=== PATIENT | female | born 1990 | race Caucasian/White ===

== ENCOUNTER 2019-02-13 17:24 | Outpatient (CLI) | payer OTHER ==
[~2019-02-13] VITALS: Ht 170.2 cm; Wt 85.3 kg
--- NOTE | 2019-02-13 17:50 | NUR ---
DEREJE SIDDIQUI presented to unit via AMBULATION from ED, accompanied by FAMILY, with c/o VOMITING. DEREJE SIDDIQUI weighed, gowned, voided, and to bed. VS taken. DEREJE SIDDIQUI oriented to bed controls, call light, TV, heat, and A/C controls.
--- NOTE | 2019-02-13 18:00 | NUR ---
PT IN BR, EMESIS NOTED, PT REPORTS NAUSEA/VOMITING/DIARRHEA SINCE SATURDAY. PT DENIES LEAKING FLUID, VAGINAL BLEEDING OR CONTRACTIONS BUT DOES REPORTS SOME LOWER ABDOMINAL CRAMPING TODAY. INITIAL ASSESSMENT COMPLETED, SEE INTERVENTIONS FOR DETAILED ASSESSMENTS, PLAN OF CARE UPDATED WITH PT/SO AND FAMILY. WILL MONITOR CLOSELY. DR STANTON NOTIFIED, NEW ORDERS RECEIVED.
--- NOTE | 2019-02-13 18:10 | NUR ---
IV STARTED X 1 STICK TO PT LT HAND, LR INFUSING AT 500ML/HR PER PUMP. LABS DRAWN SENT TO LAB. PT TOLERATED WELL.
--- NOTE | 2019-02-13 18:15 | NUR ---
FHT'S DOPPLERED AT 152.
[2019-02-13] MEDS ORDERED: LACTATED RINGERS 1,000 ML IV SCH (18:30)
[2019-02-13] MEDS ORDERED: PROMETHAZINE INJ 25 MG/ML (PHENERGAN) AMP IVP PRN (18:30)
--- NOTE | 2019-02-13 18:36 | NUR ---
PHENERGAN 25MG GIVEN SIVP FOR NAUSEA.
[2019-02-13 18:43] VITALS: BP 113/60
[2019-02-13 18:44] LABS: BASOPHILS % (AUTO) 0 % (0-10); EOSINOPHILS # (AUTO) 0.1 10^3/uL (0.0-0.3); EOSINOPHILS % (AUTO) 1 % (0-10); HEMATOCRIT 40 % (35-52); LYMPHOCYTES # (AUTO) 1.5 X 10^3 (1.0-4.0); LYMPHOCYTES % (AUTO) 13 % (12-44); MEAN CORPUSCULAR HEMOGLOBIN 29 PG (25-34); MEAN CORPUSCULAR HGB CONC 35 G/DL (32-36); MEAN CORPUSCULAR VOLUME 85 FL (80-99); MEAN PLATELET VOLUME 10.2 FL (7.4-10.4); MONOCYTES # (AUTO) 1.4 X 10^3 (0.0-1.0); MONOCYTES % (AUTO) 12 % (0-12); NEUTROPHILS # (AUTO) 8.6 X 10^3 (1.8-7.8); NEUTROPHILS % (AUTO) 74 % (42-75); PLATELET COUNT 227 10^3/uL (130-400); RED CELL DISTRIBUTION WIDTH 14.3 % (10.0-14.5); WHITE BLOOD COUNT 11.6 10^3/uL (4.3-11.0)
[2019-02-13 18:53] LABS: ALANINE AMINOTRANSFERASE 42 U/L (0-55); ALKALINE PHOSPHATASE 73 U/L (40-136); BILIRUBIN,TOTAL 0.7 MG/DL (0.1-1.0); BUN/CREATININE RATIO 10; CARBON DIOXIDE 20 MMOL/L (21-32); CREATININE SERUM 0.63 MG/DL (0.60-1.30); GFR ESTIMATED > 60; GLUCOSE 91 MG/DL (70-105); TOTAL PROTEIN 7.2 GM/DL (6.4-8.2)
[2019-02-13] MEDS ORDERED: FLU QUADRIvalent (5+ YOA) 2018-2019 (AFLURIA) 0.5 ML IM ONE (19:00)
[2019-02-13 19:05] LABS: CHLORIDE 105 MMOL/L (98-107); POTASSIUM 3.9 MMOL/L (3.6-5.0); SODIUM 133 MMOL/L (135-145)
--- NOTE | 2019-02-13 20:11 | NUR ---
Dr. Harris called with lab results. Informed that pt states that she is feeling much better at this time. Dr. Harris states that she can start with some clear liquids and then some light solid food. If she can keep that down and wants to go home, she can be dismissed. orders 25mg Promethazine, PO q4h PRN to be called into pt's pharmacy when dismissed.
--- NOTE | 2019-02-13 20:15 | NUR ---
Pt. updated with plan of care. Pt. requests some jello at this time, and states that Dr. Harris prescribed her Promethazine yesterday that she picked up and has at home if needed.
--- NOTE | 2019-02-13 21:05 | NUR ---
Pt. has now eaten some jello and crackers and states that she still is feeling good, and would like to go home at this time.
--- NOTE | 2019-02-13 21:25 | NUR ---
Pt. vitals taken. IV removed. Discharge instructions reviewed and signed at this time. Pt. is now up and changing.
--- NOTE | 2019-02-13 21:25 | NUR ---
FHT's Doppler reviewed. Infant heart rate ranged from 158-164.
[2019-02-13 21:30] VITALS: BP 106/63
--- NOTE | 2019-02-13 21:40 | NUR ---
Pt. walked down alone after SO pulled up car. Pt shows no signs or symptoms of distress.
== END 2019-02-13 21:40 | disposition home or self-care (01) ==
LOC: WSo 17:24 → LDRP 17:43 → WSo 21:40
PROVIDERS: ATTEND Obstetrics & Gynecology
DX: O21.2 Late vomiting of pregnancy (principal); Z3A.21 21 weeks gestation of pregnancy
CPT/HCPCS: 36415; 80053; 85025; 96361; 96374; 99213

== ENCOUNTER → 2019-02-18 | Outpatient (CLI) | payer OTHER ==
--- NOTE | 2019-02-18 14:58 | Diagnostic Imaging Report ---
INDICATION: survey. TECHNIQUE: Multiple real-time grayscale images were obtained over the gravid uterus. COMPARISON: None. FINDINGS: There is a single live fetus in a cephalic presentation. heart rate was recorded at 133 beats per minute. Placenta is fundal. Amniotic fluid volume is normal. Cervical length is approximately 4.3 cm. Cervical length determination is limited due to inadequate bladder filling. The survey shows kidneys, bladder and stomach to be unremarkable. There is a four-chamber heart. There is a three-vessel cord with normal insertion. The spine is unremarkable. brain evaluation is limited due to position. Biometrical measurements are as follows: Biparietal 5.38 cm, age 22 weeks 3 days. Head circumference 19.86 cm, age 22 weeks 1 days. Abdominal circumference 18.11 cm, age 23 weeks 0 days. Femur length 3.86 cm, age 22 weeks 3 days. Sonographic estimate age: 22 weeks 4 days. Sonographic estimated date of delivery: 06/20/2019. Estimated Weight: 520 gm (+/- 76 gm). LMP percentile: 61%. heart rate: 133 beats per minute. number: 1 of 1. IMPRESSION: Single live IUP 22 weeks 4 days gestational age. Estimated date of confinement sonographically is 06/20/2019. brain is limited in evaluation due to position. Followup could be performed. Dictated by: Dictated on workstation # [id number]
== END ==
LOC: RAD 13:00
PROVIDERS: ATTEND Obstetrics & Gynecology
DX: Z36.89 Encounter for other specified antenatal screening (principal); Z3A.22 22 weeks gestation of pregnancy
CPT/HCPCS: 76805

== ENCOUNTER → 2019-04-13 | Outpatient (CLI) | payer OTHER | LOC: LAB 10:57 | PROVIDERS: ATTEND Obstetrics & Gynecology | DX: R73.02 Impaired glucose tolerance (oral) (principal) | CPT/HCPCS: 36415; 82951; 82952; 82962 ==

== ENCOUNTER → 2019-05-11 | Outpatient (CLI) | payer OTHER ==
--- NOTE | 2019-05-11 23:25 | Diagnostic Imaging Report ---
INDICATION: survey. TECHNIQUE: Multiple real-time grayscale images were obtained over the gravid uterus. COMPARISON: 02/18/2019 FINDINGS: The previous OB ultrasound exam of 02/18/2019 noted a single live fetus approximately 22 weeks 4 days gestation. There were no [place] abnormalities identified but the brain was not well imaged. On this exam, the fetus is now in cephalic presentation. heart motion was noted and a rate of 133 bpm was recorded. The head is low in the pelvis and the intracranial contents are difficult to visualize. There is no obvious intracranial abnormality. No other abnormalities noted. The placenta is fundal and there is no previa. The amniotic fluid volume is within normal limits. growth parameters were not obtained for this study. IMPRESSION: 1. There is a single live fetus in cephalic presentation. The EDC remains 05/23/2019. 2. The intracranial contents were not well visualized due to the lie. There is no obvious intracranial abnormality evident. e Biometrical measurements are as follows: Biparietal cm, age weeks days. Head circumference cm, age weeks days. Abdominal circumference cm, age weeks days. Femur length cm, age weeks days. Sonographic estimate age: weeks days. Sonographic estimated date of delivery: . Estimated Weight: gm (+/- gm). LMP percentile: %. heart rate: beats per minute. number: of . IMPRESSION: Dictated by: Dictated on workstation # [id number]
== END ==
LOC: RAD 15:10
PROVIDERS: ATTEND Obstetrics & Gynecology
DX: Z36.89 Encounter for other specified antenatal screening (principal); Z3A.33 33 weeks gestation of pregnancy
CPT/HCPCS: 76805

== ENCOUNTER 2019-06-19 10:30 | Inpatient (IN) | payer OTHER ==
[2019-06-19] VITALS (49 sets, daily range): BP systolic 55–142; BP diastolic 53–91
[~2019-06-19] VITALS: Ht 170.2 cm; Wt 107.0 kg
--- NOTE | 2019-06-19 10:30 | NUR ---
DEREJE SIDDIQUI presented to unit via ambulatory from home, accompanied by boyfriend , with c/o INDUCTION. DEREJE SIDDIQUI weighed, gowned, voided, and to bed. EFHM and TOCO applied, VS taken. DEREJE SIDDIQUI oriented to bed controls, call light, TV, heat, and A/C controls. Pt was a scheduled 0700 induction, however had to be delayed due to other labors.
[2019-06-19] MEDS ORDERED: D5 LR IV SOLUTION 1,000 ML IV ONE (10:57)
[2019-06-19] MEDS ORDERED: D5 LR IV SOLUTION 1,000 ML IV SCH (12:53)
[2019-06-19] MEDS ORDERED: MINERAL OIL CONCENTRATE 99.9% 15 ML UDC TOP PRN (13:00)
[2019-06-19 13:13] LABS: BASOPHILS % (AUTO) 0 % (0-10); EOSINOPHILS # (AUTO) 0.2 10^3/uL (0.0-0.3); EOSINOPHILS % (AUTO) 1 % (0-10); HEMATOCRIT 38 % (35-52); HEMOGLOBIN 12.5 G/DL (11.5-16.0); LYMPHOCYTES # (AUTO) 3.1 X 10^3 (1.0-4.0); LYMPHOCYTES % (AUTO) 25 % (12-44); MEAN CORPUSCULAR HEMOGLOBIN 28 PG (25-34); MEAN CORPUSCULAR HGB CONC 33 G/DL (32-36); MEAN CORPUSCULAR VOLUME 85 FL (80-99); MEAN PLATELET VOLUME 11.6 FL (7.4-10.4); MONOCYTES % (AUTO) 8 % (0-12); NEUTROPHILS % (AUTO) 65 % (42-75); PLATELET COUNT 222 10^3/uL (130-400); RED CELL DISTRIBUTION WIDTH 15.5 % (10.0-14.5); WHITE BLOOD COUNT 12.3 10^3/uL (4.3-11.0)
[2019-06-19] MEDS ORDERED: SUFENTA 0.6MCG/ML BUPIVA 0.125 100 ML ONE (13:28)
[2019-06-19] MEDS ORDERED: fentaNYL INJECTION 100 MCG/2 ML AMP ONE (13:46)
[2019-06-19] MEDS ORDERED: CATHETER FLUSH 10 ML SYR IV SCH (14:00)
[2019-06-19] MEDS ORDERED: LACTATED RINGERS 1,000 ML IV ONE (14:27)
[2019-06-19] MEDS ORDERED: diphenhydrAMINE 50 MG/ML INJ (BENADRYL) IV PRN (14:30)
[2019-06-19] MEDS ORDERED: NALOXONE 0.4 MG/ML 1 ML (NARCAN) VIAL IV PRN ×2 (14:30)
[2019-06-19] MEDS ORDERED: ONDANSETRON 4 MG/2 ML (SDV) Z0FRAN IV PRN (14:30)
[2019-06-19] MEDS ORDERED: METOCLOPRAMIDE INJ 10 MG/2 ML (REGLAN) IV PRN (14:30)
[2019-06-19] MEDS ORDERED: EPIDURAL (SUFENTA 0.6MCG/ML BUPIVA 0.125%) 100 ML BAG EPI PRN (14:30)
[2019-06-19] MEDS ORDERED: OXYTOCIN/NORMAL SALINE 500 ML IV ONE (14:42)
[2019-06-19] MEDS ORDERED: PREN1TAB19 PO (16:05)
[2019-06-19] MEDS ORDERED: MAG30ORA2 PO (16:05)
[2019-06-19] MEDS ORDERED: ACET325C5 PO (16:06)
[2019-06-19] MEDS ORDERED: LIDOCAINE/EPI 2% 1:200,00 (XYLOCAINE) 10 ML VIAL ONE (16:53)
[2019-06-19] MEDS ORDERED: OXYTOCIN/NORMAL SALINE 500 ML IV SCH ×2 (17:59→23:17)
--- OUTSIDE RECORDS SUMMARY | 2019-06-19 19:33 | XMS REPORT | Continuity of Care Document ---
Author Organization Unknown Address Unknown Allergies Active Description Code Type Severity Reaction Onset Reported/Identified Relationship to Patient Clinical Status Yes No Known Drug Allergies [id number] Drug Allergy Unknown N/A 02/13/2019 Medications There is no data. Problems Date Dx Coded Attending Type Code Diagnosis Diagnosed By 02/13/2019 STANTON DO, JOAQUIN C Ot O21.2 LATE VOMITING OF 02/13/2019 STANTON DO, JOAQUIN C Ot Z3A.21 21 WEEKS GESTATION OF 02/16/2019 STANTON DO, JOAQUIN C Ot O21.2 LATE VOMITING OF 02/16/2019 STANTON DO, JOAQUIN C Ot Z3A.21 21 WEEKS GESTATION OF 02/20/2019 STANTON DO JOAQUIN C Ot Z36.89 ENCOUNTER FOR OTHER SPECIFIED 02/20/2019 STANTON DO, JOAQUIN C Ot Z3A.22 22 WEEKS GESTATION OF 03/16/2019 STANTON DO, JOAQUIN C Ot Z36.89 ENCOUNTER FOR OTHER SPECIFIED 03/16/2019 STANTON DO, JOAQUIN C Ot Z3A.22 22 WEEKS GESTATION OF 04/20/2019 STANTON DO, JOAQUIN C Ot R73.02 IMPAIRED GLUCOSE TOLERANCE (ORAL) 05/07/2019 STANTON DO, JOAQUIN C Ot R73.02 IMPAIRED GLUCOSE TOLERANCE (ORAL) 06/08/2019 STANTON DO JOAQUIN C Ot Z36.89 ENCOUNTER FOR OTHER SPECIFIED 06/08/2019 STANTON DO, JOAQUIN C Ot Z3A.33 33 WEEKS GESTATION OF 06/19/2019 STANTON DO, JOAQUIN C Ot Z36.89 ENCOUNTER FOR OTHER SPECIFIED 06/19/2019 STANTON DO, JOAQUIN C Ot Z3A.22 22 WEEKS GESTATION OF 06/19/2019 STANTON DO, JOAQUIN C Ot R73.02 IMPAIRED GLUCOSE TOLERANCE (ORAL) 06/19/2019 STANTON DO JOAQUIN C Ot Z36.89 ENCOUNTER FOR OTHER SPECIFIED 06/19/2019 STANTON DO, JOAQUIN C Ot Z3A.33 33 WEEKS GESTATION OF Procedures There is no data. Results Test Result Range Complete blood count (CBC) with automated white blood cell (WBC) differential - 02/13/19 18:16 Blood leukocytes automated count (number/volume) 11.6 10*3/uL 4.3-11.0 Blood erythrocytes automated count (number/volume) 4.76 10*6/uL 4.35-5.85 Venous blood hemoglobin measurement (mass/volume) 14.0 g/dL 11.5-16.0 Blood hematocrit (volume fraction) 40 % 35-52 Automated erythrocyte mean corpuscular volume 85 [foz_us] 80-99 Automated erythrocyte mean corpuscular hemoglobin (mass per erythrocyte) 29 pg 25-34 Automated erythrocyte mean corpuscular hemoglobin concentration measurement (mass/volume) 35 g/dL 32-36 Automated erythrocyte distribution width ratio 14.3 % 10.0- 14.5 Automated blood platelet count (count/volume) 227 10*3/uL 130-400 Automated blood platelet mean volume measurement 10.2 [foz_us] 7.4-10.4 Automated blood neutrophils/100 leukocytes 74 % 42-75 Automated blood lymphocytes/100 leukocytes 13 % 12-44 Blood monocytes/100 leukocytes 12 % 0-12 Automated blood eosinophils/100 leukocytes 1 % 0-10 Automated blood basophils/100 leukocytes 0 % 0-10 Blood neutrophils automated count (number/volume) 8.6 10*3 1.8-7.8 Blood lymphocytes automated count (number/volume) 1.5 10*3 1.0-4.0 Blood monocytes automated count (number/volume) 1.4 10*3 0.0- 1.0 Automated eosinophil count 0.1 10*3/uL 0.0-0.3 Automated blood basophil count (count/volume) 0.0 10*3/uL 0.0-0.1 Comprehensive metabolic panel - 02/13/19 18:16 Serum or plasma sodium measurement (moles/volume) 133 mmol/L 135-145 Serum or plasma potassium measurement (moles/volume) 3.9 mmol/L 3.6-5.0 Serum or plasma chloride measurement (moles/volume) 105 mmol/L 98-107 Carbon dioxide 20 mmol/L 21-32 Serum or plasma anion gap determination (moles/volume) 8 mmol/L 5-14 Serum or plasma urea nitrogen measurement (mass/volume) 6 mg/dL 7-18 Serum or plasma creatinine measurement (mass/volume) 0.63 mg/dL 0.60-1.30 Serum or plasma urea nitrogen/creatinine mass ratio 10 NRG Serum or plasma creatinine measurement with calculation of estimated glomerular filtration rate > NRG Serum or plasma glucose measurement (mass/volume) 91 mg/dL 70-105 Serum or plasma calcium measurement (mass/volume) 9.0 mg/dL 8.5-10.1 Serum or plasma total bilirubin measurement (mass/volume) 0.7 mg/dL 0.1-1.0 Serum or plasma alkaline phosphatase measurement (enzymatic activity/volume) 73 U/L 40-136 Serum or plasma aspartate aminotransferase measurement (enzymatic activity/volume) 45 U/L 5-34 Serum or plasma alanine aminotransferase measurement (enzymatic activity/volume) 42 U/L 0-55 Serum or plasma protein measurement (mass/volume) 7.2 g/dL 6.4-8.2 Serum or plasma albumin measurement (mass/volume) 4.0 g/dL 3.2-4.5 CALCIUM CORRECTED 9.0 mg/dL 8.5-10.1 Capillary blood glucose measurement by glucometer (mass/volume) - 04/13/19 11:07 Capillary blood glucose measurement by glucometer (mass/volume) 94 mg/dL 70-110 Complete blood count (CBC) with automated white blood cell (WBC) differential - 06/19/19 11:40 Blood leukocytes automated count (number/volume) 12.3 10*3/uL 4.3-11.0 Blood erythrocytes automated count (number/volume) 4.40 10*6/uL 4.35-5.85 Venous blood hemoglobin measurement (mass/volume) 12.5 g/dL 11.5-16.0 Blood hematocrit (volume fraction) 38 % 35-52 Automated erythrocyte mean corpuscular volume 85 [foz_us] 80-99 Automated erythrocyte mean corpuscular hemoglobin (mass per erythrocyte) 28 pg 25-34 Automated erythrocyte mean corpuscular hemoglobin concentration measurement (mass/volume) 33 g/dL 32-36 Automated erythrocyte distribution width ratio 15.5 % 10.0- 14.5 Automated blood platelet count (count/volume) 222 10*3/uL 130-400 Automated blood platelet mean volume measurement 11.6 [foz_us] 7.4-10.4 Automated blood neutrophils/100 leukocytes 65 % 42-75 Automated blood lymphocytes/100 leukocytes 25 % 12-44 Blood monocytes/100 leukocytes 8 % 0-12 Automated blood eosinophils/100 leukocytes 1 % 0-10 Automated blood basophils/100 leukocytes 0 % 0-10 Blood neutrophils automated count (number/volume) 8.0 10*3 1.8-7.8 Blood lymphocytes automated count (number/volume) 3.1 10*3 1.0-4.0 Blood monocytes automated count (number/volume) 1.0 10*3 0.0- 1.0 Automated eosinophil count 0.2 10*3/uL 0.0-0.3 Automated blood basophil count (count/volume) 0.0 10*3/uL 0.0-0.1 Blood type T Indirect antibody screen panel - 06/19/19 11:40 WRISTBAND NUMBER [id number] NRG ABO+Rh group OP NRG Blood group antibody screen NEGATIVE NRG Encounters ACCT No. Visit Date/Time Discharge Status Pt. Type Provider Facility Loc./Unit Complaint [id number] 05/11/2019 15:10:00 05/11/2019 23:59:59 CLS Outpatient JOAQUIN STANTON DO [facility] RAD 32 WEEKS GESTATION OF [id number] 04/13/2019 10:57:00 04/13/2019 23:59:59 CLS Outpatient JOAQUIN STANTON DO [facility] LAB R73.02 [id number] 02/18/2019 13:00:00 02/18/2019 23:59:59 CLS Outpatient JOAQUIN STANTON DO [facility] RAD SECOND TRIMESTER [id number] 02/13/2019 17:24:00 02/13/2019 21:40:00 DIS Outpatient JOAQUIN STANTON DO [facility] WSo VOMITING [id number] 06/19/2019 10:30:00 ACT Inpatient JOAQUIN STANTON DO [facility] LDRP INDUCTION
--- NOTE | 2019-06-19 23:23 | OB Labor & Delivery Record ---
Vag Delivery Note Vag Delivery Note Date of Delivery: 06/19/19 Preoperative Diagnosis: Essie Stearns is a 28 /Para 2/0 ,Gestational Age 39 3/7 weeks for induction of labor with favorable cervix/advanced dilation Postoperative Diagnosis: Same Surgeon: JOAQUIN STANTON Anesthesia: epidural and local Delivery Type: vaginal Findings: Viable male , apgars pending, weight pending Lacerations: 2nd Intact placenta with 3 vessel cord. No nuchal cord, body cord or shoulder dystocia Estimated Blood Loss: 500 ml Complications: None Condition: Stable Description of Procedure: The patient is a 28 year old female who presented at 39 3/7 weeks for induction of labor. She was admitted and informed consent was obtained. Her labor course was remarkable for AROM, epidural and pitocin augmentation. She progressed to complete dilatation and began to push. She was then set up for delivery. The 's head was delivered atraumatically in the OA position. The shoulders and remainder of the 's body were then delivered without difficulty. Upon delivery, the head was held below the level of the perineum and the mouth and nares were bulb suctioned. The cord was doubly clamped and cut and the was handed off to the pediatric staff. An intact placenta with 3-vessel cord delivered via Lola and there was found to be minimal bleeding.~ Vigorous fundal massage was performed and the fundus was found to be firm. IV oxytocin was given. Examination of the vagina and perineum revealed a 2nd degree laceration repaired in the usual fashion with 3-0 vicryl suture. Following the repair, sponge, instrument and needle counts were correct. Mom and baby were both in stable condition in the labor suite. Vitals - Labs Vital Signs - I&O Vital Signs Date Time Temp Pulse Resp B/P (MAP) Pulse Ox O2 Delivery O2 Flow Rate FiO2 06/19/19 19:00 87 16 111/69 (83) 99 Room Air 06/19/19 18:45 16 110/75 (87) 100 Room Air 06/19/19 18:30 87 16 110/75 (87) 100 Room Air 06/19/19 18:15 84 16 112/75 (87) 98 Room Air 06/19/19 18:00 97.4 81 16 116/70 (85) 100 Room Air 06/19/19 17:45 84 16 100 Room Air 06/19/19 17:30 96.6 81 16 119/76 (90) 100 Room Air 06/19/19 17:15 77 16 115/68 (84) 100 Room Air 06/19/19 17:00 76 16 117/71 (86) 99 Room Air 06/19/19 16:45 76 16 117/71 (86) 99 Room Air 06/19/19 16:30 81 16 101/57 (72) 98 Room Air 06/19/19 16:15 81 16 101/57 (72) 98 Room Air 06/19/19 16:00 96.8 79 16 102/57 (72) 97 Room Air 06/19/19 15:45 80 16 105/53 (70) 97 Room Air 06/19/19 15:30 101 16 102/66 (78) 97 Room Air 06/19/19 15:15 92 16 105/63 (77) 98 Room Air 06/19/19 15:00 101 16 102/66 (78) 97 Room Air 06/19/19 14:45 97 16 107/66 (80) 97 Room Air 06/19/19 14:35 93 16 105/56 (72) 96 06/19/19 14:30 104 16 111/62 (78) 98 Room Air 06/19/19 14:25 100 16 120/65 (83) 98 Room Air 06/19/19 14:15 104 16 111/62 (78) 98 Room Air 06/19/19 14:12 11 16 126/66 (86) 100 Room Air 06/19/19 14:05 92 16 131/89 (103) 96 Room Air 06/19/19 14:00 84 16 123/85 (98) 97 Room Air 06/19/19 13:55 98.8 87 16 122/78 (93) 98 Room Air 06/19/19 13:48 125/82 (96) Room Air 06/19/19 12:00 Room Air 06/19/19 11:00 98.2 82 16 126/75 (92) Room Air Labs Laboratory Tests 06/19/19 11:40: White Blood Count 12.3H, Red Blood Count 4.40, Hemoglobin 12.5, Hematocrit 38, Mean Corpuscular Volume 85, Mean Corpuscular Hemoglobin 28, Mean Corpuscular Hemoglobin Concent 33, Red Cell Distribution Width 15.5H, Platelet Count 222, Mean Platelet Volume 11.6H, Neutrophils (%) (Auto) 65, Lymphocytes (%) (Auto) 25, Monocytes (%) (Auto) 8, Eosinophils (%) (Auto) 1, Basophils (%) (Auto) 0, Neutrophils # (Auto) 8.0H, Lymphocytes # (Auto) 3.1, Monocytes # (Auto) 1.0, Eosinophils # (Auto) 0.2, Basophils # (Auto) 0.0 JOAQUIN STANTON DO Jun 19, 2019 23:23
[2019-06-19] MEDS ORDERED: MEASLES,MUMPS,RUBELLA 1 EA INJ SQ ONE (23:30)
[2019-06-19] MEDS ORDERED: WITCH HAZEL(TUCKS) 40 EA JAR TOP PRN (23:30)
[2019-06-19] MEDS ORDERED: DIBUCAINE (NUPERCAINAL) 1% OINT 30 GM TOP PRN (23:30)
[2019-06-19] MEDS ORDERED: TETANUS,DIPTH,PERTUSS P/F (BOOSTRIX) 0.5 ML VIAL IM ONE (23:30)
[2019-06-20] VITALS (7 sets, daily range): BP systolic 97–124; BP diastolic 57–83
[2019-06-20] MEDS: BENZOCAINE/MENTHOL (DERMOPLAST) 56 ML CAN TP PRN (00:01)
--- NOTE | 2019-06-20 00:45 | NUR ---
Donovan care done on pt. Heavy rubra noted. Fundal massage given. fudus firm u/0. No clots seen. Pad changed, panties on. Gown changed. Epidural catheter removed. Bandaid applied to epidural site. d5lr dc'd. Pt moving legs and requesting to move. Pt transferred to with assist. Pt transferred per to room 308 accompanied by this rn, so, and infant in crib. Pt up to br. Able to void. donovan care explained. Dermaplast applied. Pericare done with assist. Light to moderate rubra noted. v pad and panties on. Pt walked to bed. food tray and sprite given. Oriented to room Info papers given. Will monitor.
--- NOTE | 2019-06-20 01:30 | NUR ---
Pt denies needs at this time. Denies heavy bleeding/pain. Encouraged pt to feed before she goes to sleep for the night.
--- NOTE | 2019-06-20 03:30 | NUR ---
Pt still has not fed . VS taken, IV saline locked. to R breast. Baby very drowsy. Willard nipple. difficult to latch. Latch achieved after repeated attempts with sweet ease and nipple shield. Mom seems satisfied. Encouraged mom to try again in 2 hours.
[2019-06-20] MEDS: ACETAMINOPHEN 500 MG TAB (TYLENOL) PO SCH ×3 (05:30→22:14)
[2019-06-20] MEDS ORDERED: CATHETER FLUSH 10 ML SYR IV SCH (06:00)
[2019-06-20] MEDS: IBUPROFEN 600 MG (MOTRIN) TAB PO SCH ×5 (06:21→23:54)
[2019-06-20 06:33] LABS: BASOPHILS % (AUTO) 0 % (0-10); EOSINOPHILS % (AUTO) 0 % (0-10); HEMATOCRIT 31 % (35-52); HEMOGLOBIN 10.1 G/DL (11.5-16.0); LYMPHOCYTES # (AUTO) 2.4 X 10^3 (1.0-4.0); LYMPHOCYTES % (AUTO) 12 % (12-44); MEAN CORPUSCULAR HEMOGLOBIN 29 PG (25-34); MEAN CORPUSCULAR HGB CONC 33 G/DL (32-36); MEAN CORPUSCULAR VOLUME 87 FL (80-99); MEAN PLATELET VOLUME 10.8 FL (7.4-10.4); MONOCYTES # (AUTO) 1.6 X 10^3 (0.0-1.0); MONOCYTES % (AUTO) 8 % (0-12); NEUTROPHILS # (AUTO) 15.7 X 10^3 (1.8-7.8); NEUTROPHILS % (AUTO) 80 % (42-75); PLATELET COUNT 179 10^3/uL (130-400); RED CELL DISTRIBUTION WIDTH 15.6 % (10.0-14.5); WHITE BLOOD COUNT 19.8 10^3/uL (4.3-11.0)
[2019-06-20] MEDS: DOCUSATE SODIUM 100 MG (COLACE) CAP PO SCH ×2 (08:46→22:14)
[2019-06-20] MEDS: PRENATAL VITAMIN 1 EA TAB PO SCH (08:46)
[2019-06-20] MEDS: FERROUS SULF 325 MG (IRON) TAB PO SCH (08:46)
--- NOTE | 2019-06-20 08:46 | NUR ---
AM shift assessment completed and vital signs obtained, see interventions. Scheduled Colace, PNV, and Iron PO given to patient. Plan of care reviewed with patient. Patient verbalizes understanding and questions answered. Shower supplies provided.
--- NOTE | 2019-06-20 14:00 | NUR ---
Dr. Harris here to see patient.
--- NOTE | 2019-06-20 14:24 | Postpartum Progress Note ---
Note Note Day # 1 s/p Subjective: Patient is without complaints. Ambulating, voiding. Tolerating a regular diet w ithout nausea or vomiting. Normal lochia. Pain is well controlled with oral pain medications. breast feeding. [] Objective: Laboratory Tests Test 06/20/19 06:25 Range/Units White Blood Count 19.8 H 4.3-11.0 10^3/uL Red Blood Count 3.52 L 4.35-5.85 10^6/uL Hemoglobin 10.1 L 11.5-16.0 G/DL Hematocrit 31 L 35-52 % Mean Corpuscular Volume 87 80-99 FL Mean Corpuscular Hemoglobin 29 25-34 PG Mean Corpuscular Hemoglobin Concent 33 32-36 G/DL Red Cell Distribution Width 15.6 H 10.0-14.5 % Platelet Count 179 130-400 10^3/uL Mean Platelet Volume 10.8 H 7.4-10.4 FL Neutrophils (%) (Auto) 80 H 42-75 % Lymphocytes (%) (Auto) 12 12-44 % Monocytes (%) (Auto) 8 0-12 % Eosinophils (%) (Auto) 0 0-10 % Basophils (%) (Auto) 0 0-10 % Neutrophils # (Auto) 15.7 H 1.8-7.8 X 10^3 Lymphocytes # (Auto) 2.4 1.0-4.0 X 10^3 Monocytes # (Auto) 1.6 H 0.0-1.0 X 10^3 Eosinophils # (Auto) 0.0 0.0-0.3 10^3/uL Basophils # (Auto) 0.0 0.0-0.1 10^3/uL Vital Sign - Last 24 Hours 06/19/19 06/19/19 06/19/19 06/19/19 14:25 14:30 14:35 14:45 Pulse 100 104 93 97 Resp 16 16 16 16 B/P (MAP) 120/65 (83) 111/62 (78) 105/56 (72) 107/66 (80) Pulse Ox 98 98 96 97 O2 Delivery Room Air Room Air Room Air 06/19/19 06/19/19 06/19/19 06/19/19 15:00 15:15 15:30 15:45 Pulse 101 92 101 80 Resp 16 16 16 16 B/P (MAP) 102/66 (78) 105/63 (77) 102/66 (78) 105/53 (70) Pulse Ox 97 98 97 97 O2 Delivery Room Air Room Air Room Air Room Air 06/19/19 06/19/19 06/19/19 06/19/19 16:00 16:15 16:30 16:45 Temp 96.8 Pulse 79 81 81 76 Resp 16 16 16 16 B/P (MAP) 102/57 (72) 101/57 (72) 101/57 (72) 117/71 (86) Pulse Ox 97 98 98 99 O2 Delivery Room Air Room Air Room Air Room Air 06/19/19 06/19/19 06/19/19 06/19/19 17:00 17:15 17:30 17:45 Temp 96.6 Pulse 76 77 81 84 Resp 16 16 16 16 B/P (MAP) 117/71 (86) 115/68 (84) 119/76 (90) Pulse Ox 99 100 100 100 O2 Delivery Room Air Room Air Room Air Room Air 06/19/19 06/19/19 06/19/19 06/19/19 18:00 18:15 18:30 18:45 Temp 97.4 Pulse 81 84 87 Resp 16 16 16 16 B/P (MAP) 116/70 (85) 112/75 (87) 110/75 (87) 110/75 (87) Pulse Ox 100 98 100 100 O2 Delivery Room Air Room Air Room Air Room Air 06/19/19 06/19/19 06/19/19 06/19/19 19:00 19:15 19:30 19:45 Temp 97.5 Pulse 87 93 90 92 Resp 16 18 18 18 B/P (MAP) 111/69 (83) 132/71 (91) 105/74 (84) 104/65 (78) Pulse Ox 99 100 99 99 O2 Delivery Room Air Room Air Room Air Room Air 06/19/19 06/19/19 06/19/19 06/19/19 20:00 20:15 20:35 20:40 Temp 97.6 Pulse 83 83 86 81 Resp 18 18 18 18 B/P (MAP) 110/62 (78) 103/63 (76) 142/66 (91) 116/74 (88) Pulse Ox 100 98 99 99 O2 Delivery Room Air Room Air Room Air Room Air 06/19/19 06/19/19 06/19/19 06/19/19 20:45 20:50 20:55 21:00 Pulse 91 83 87 95 Resp 18 18 18 18 B/P (MAP) 119/77 (91) 110/67 (81) 109/64 (79) 114/67 (83) Pulse Ox 99 100 100 100 O2 Delivery Room Air Room Air Room Air Room Air 06/19/19 06/19/19 06/19/19 06/19/19 21:05 21:30 21:45 22:00 Pulse 83 88 104 121 Resp 18 18 18 18 B/P (MAP) 112/75 (87) 140/82 (101) 130/91 (104) 132/61 (84) Pulse Ox 100 O2 Delivery Room Air Room Air Room Air Room Air 06/19/19 06/19/19 06/19/19 06/19/19 22:15 22:30 22:45 23:00 Pulse 115 150 117 Resp 18 18 18 18 B/P (MAP) 137/82 (100) 55/69 (64) 101/69 (80) 110/57 (74) O2 Delivery Room Air Room Air Room Air Room Air 06/19/19 06/19/19 06/19/19 06/20/19 23:15 23:45 23:56 00:10 Temp 99.1 Pulse 108 104 103 102 Resp 18 18 18 18 B/P (MAP) 127/73 (91) 119/55 (76) 118/79 (92) 118/76 (90) O2 Delivery Room Air Room Air Room Air Room Air 06/20/19 06/20/19 06/20/19 06/20/19 03:00 07:00 08:46 11:40 Temp 98.5 98.5 98.5 97.9 Pulse 88 75 72 79 Resp 18 18 16 16 B/P (MAP) 97/59 (72) 101/64 (76) 113/57 (75) 116/66 (83) Pulse Ox 99 95 O2 Delivery Room Air Room Air Intake and Output 06/19/19 06/19/19 06/20/19 15:00 23:00 07:00 Intake Total 1000 ml Balance 1000 ml Physical Exam: General - Alert and oriented, no apparent distress Abdomen - Soft, appropriately tender to palpation, non-distended, fundus firm at umbilicus Extremities - no edema, negative Jr's bilaterally [ Assessment: 1. post- day # 1, status post spontaneous vaginal delivery. Recovering well, hemodynamically stable Plan: Routine care. Encourage breast feeding. Encourage ambulation. Ferrous sulfate supplementation. Plan for discharge tomorrow Vitals - Labs Vital Signs - I&O Vital Signs Date Time Temp Pulse Resp B/P (MAP) Pulse Ox O2 Delivery O2 Flow Rate FiO2 06/20/19 11:40 97.9 79 16 116/66 (83) 95 Room Air 06/20/19 08:46 98.5 72 16 113/57 (75) 99 Room Air 06/20/19 07:00 98.5 75 18 101/64 (76) 06/20/19 03:00 98.5 88 18 97/59 (72) 06/20/19 00:10 99.1 102 18 118/76 (90) Room Air 06/19/19 23:56 103 18 118/79 (92) Room Air 06/19/19 23:45 104 18 119/55 (76) Room Air 06/19/19 23:15 108 18 127/73 (91) Room Air 06/19/19 23:00 18 110/57 (74) Room Air 06/19/19 22:45 117 18 101/69 (80) Room Air 06/19/19 22:30 150 18 55/69 (64) Room Air 06/19/19 22:15 115 18 137/82 (100) Room Air 06/19/19 22:00 121 18 132/61 (84) Room Air 06/19/19 21:45 104 18 130/91 (104) Room Air 06/19/19 21:30 88 18 140/82 (101) Room Air 06/19/19 21:05 83 18 112/75 (87) 100 Room Air 06/19/19 21:00 95 18 114/67 (83) 100 Room Air 06/19/19 20:55 87 18 109/64 (79) 100 Room Air 06/19/19 20:50 83 18 110/67 (81) 100 Room Air 06/19/19 20:45 91 18 119/77 (91) 99 Room Air 06/19/19 20:40 81 18 116/74 (88) 99 Room Air 06/19/19 20:35 97.6 86 18 142/66 (91) 99 Room Air 06/19/19 20:15 83 18 103/63 (76) 98 Room Air 06/19/19 20:00 83 18 110/62 (78) 100 Room Air 06/19/19 19:45 92 18 104/65 (78) 99 Room Air 06/19/19 19:30 90 18 105/74 (84) 99 Room Air 06/19/19 19:15 97.5 93 18 132/71 (91) 100 Room Air 06/19/19 19:00 87 16 111/69 (83) 99 Room Air 06/19/19 18:45 16 110/75 (87) 100 Room Air 06/19/19 18:30 87 16 110/75 (87) 100 Room Air 06/19/19 18:15 84 16 112/75 (87) 98 Room Air 06/19/19 18:00 97.4 81 16 116/70 (85) 100 Room Air 06/19/19 17:45 84 16 100 Room Air 06/19/19 17:30 96.6 81 16 119/76 (90) 100 Room Air 06/19/19 17:15 77 16 115/68 (84) 100 Room Air 06/19/19 17:00 76 16 117/71 (86) 99 Room Air 06/19/19 16:45 76 16 117/71 (86) 99 Room Air 06/19/19 16:30 81 16 101/57 (72) 98 Room Air 06/19/19 16:15 81 16 101/57 (72) 98 Room Air 06/19/19 16:00 96.8 79 16 102/57 (72) 97 Room Air 06/19/19 15:45 80 16 105/53 (70) 97 Room Air 06/19/19 15:30 101 16 102/66 (78) 97 Room Air 06/19/19 15:15 92 16 105/63 (77) 98 Room Air 06/19/19 15:00 101 16 102/66 (78) 97 Room Air 06/19/19 14:45 97 16 107/66 (80) 97 Room Air 06/19/19 14:35 93 16 105/56 (72) 96 06/19/19 14:30 104 16 111/62 (78) 98 Room Air 06/19/19 14:25 100 16 120/65 (83) 98 Room Air I & O 06/20/19 07:00 Intake Total 1000 ml Balance 1000 ml Labs Laboratory Tests 06/20/19 06:25: White Blood Count 19.8H, Red Blood Count 3.52L, Hemoglobin 10.1L, Hematocrit 31L , Mean Corpuscular Volume 87, Mean Corpuscular Hemoglobin 29, Mean Corpuscular Hemoglobin Concent 33, Red Cell Distribution Width 15.6H, Platelet Count 179, Mean Platelet Volume 10.8H, Neutrophils (%) (Auto) 80H, Lymphocytes (%) (Auto) 12, Monocytes (%) (Auto) 8, Eosinophils (%) (Auto) 0, Basophils (%) (Auto) 0, Neutrophils # (Auto) 15.7H, Lymphocytes # (Auto) 2.4, Monocytes # (Auto) 1.6H, Eosinophils # (Auto) 0.0, Basophils # (Auto) 0.0 JOAQUIN STANTON DO Jun 20, 2019 14:24
[2019-06-20] MEDS ORDERED: ACET-77 PO (14:25)
[2019-06-20] MEDS ORDERED: DOCU100C37 PO (14:25)
[2019-06-20] MEDS ORDERED: IBUP-844 PO (14:25)
[2019-06-20] MEDS ORDERED: FERR325T18 PO (14:25)
--- NOTE | 2019-06-20 14:27 | Discharge Inst-Women's Service ---
Discharge Inst-Women's Serv Depart Medication/Instructions New, Converted or Re-Newed RX: Transmitted to Pharmacy Final Diagnosis vaginal delivery second degree laceration induction Consults/Follow Up Additional Follow Up: Yes (2 weeks and 6 weeks ( call saturday for appointment)) Activity Activity: Activity as Tolerated Driving Instructions: You May Drive NO SMOKING: NO SMOKING Nothing Inside Vagina: No Douching, No Makena, No Tampons Diet Discharge Diet: No Restrictions Symptoms to Report to : Swelling Increased, Bleeding Excessive, Pain Increased, Fever Over 101 Degrees F, Vaginal Bleeding Increase, Cramps in Feet or Legs, Vaginal Discharge Foul For Any Problems or Questions: Contact Your Physician JOAQUIN STANTON DO Jun 20, 2019 14:27
--- NOTE | 2019-06-20 14:46 | Anesthesia-Regional Post-Op ---
Regional Patient Condition Mental Status: Alert, Oriented x3 Circulation: Same as Pre-Op Headache: Absent Sensation: Full Recovery Motor Block: Absent Post Op Complications Complications None Follow Up Care/Instructions Patient Instructions None needed. Anesthesia/Patient Condition Patient is doing well, no complaints, stable vital signs, no apparent adverse anesthesia problems. No complications reported per nursing. LINDA LOVE CRNA Jun 20, 2019 14:46
--- NOTE | 2019-06-20 17:27 | NUR ---
Assistance provided with . SNS of 10 cc Similac at the left breast.
--- NOTE | 2019-06-20 19:20 | NUR ---
Report to Negin Villarreal RN.
--- NOTE | 2019-06-20 19:40 | NUR ---
pt sitting up in bed. assessment completed. family at bedside. pt denies any needs at this time. will continue to monitor.
--- NOTE | 2019-06-20 20:45 | NUR ---
ASSISTED PT WITH GETTING NB TO BREAST FEED ON RIGHT SIDE. NB ATE WELL FOR 10 MIN, TAKING 5CC OF SIMILAC THROUGH SNS.
--- NOTE | 2019-06-20 22:45 | NUR ---
PT GOING TO SHOWER. SHOWER SET UP
[2019-06-21 01:18] VITALS: BP 114/75
[2019-06-21] MEDS: IBUPROFEN 600 MG (MOTRIN) TAB PO SCH ×2 (05:55→12:10)
[2019-06-21] MEDS: ACETAMINOPHEN 500 MG TAB (TYLENOL) PO SCH ×2 (05:55→14:29)
[2019-06-21 07:35] VITALS: BP 126/74
[2019-06-21] MEDS: DOCUSATE SODIUM 100 MG (COLACE) CAP PO SCH (07:35)
[2019-06-21] MEDS: BENZOCAINE/MENTHOL (DERMOPLAST) 56 ML CAN TP PRN (07:35)
[2019-06-21] MEDS: FERROUS SULF 325 MG (IRON) TAB PO SCH (07:35)
[2019-06-21] MEDS: PRENATAL VITAMIN 1 EA TAB PO SCH (07:35)
--- NOTE | 2019-06-21 07:35 | NUR ---
AM shift assessment completed and vital signs obtained, see interventions. Patient reports much improved through the night. Scheduled PNV, Iron, and Colace PO given. Plan of care reviewed with patient. Patient verbalizes understanding. Encouraged patient to call if assistance with needed.
--- NOTE | 2019-06-21 08:00 | NUR ---
assistance provided. Mom able to get to latch but infant very "sleepy" and reluctant to suckle actively. SNS set up. Mom reports infant fed well through the night and that she only had to utilize SNS one time. Reassured Mom that her technique was improved from yesterday. Moved infant to other breast in attempt to wake him.
--- NOTE | 2019-06-21 08:21 | NUR ---
Infant latches to left breast with encouragement. Sucrose and SNS utilized. suckles actively for a total of 7 minutes before losing interest. Encouraged Mom to place skin to skin and attempt another feeding in a couple of hours. Mom verbalizes understanding.
[2019-06-21 14:29] VITALS: BP 105/64
--- NOTE | 2019-06-21 14:55 | NUR ---
Discharge instructions reviewed with patient both written and verbally. Patient verbalizes understanding and questions answered. Prescriptions e-scribed to patient's pharmacy per Dr. Harris.
--- NOTE | 2019-06-21 16:15 | NUR ---
Patient discharged at this time and ambulated down to awaiting private vehicle accompanied by this RN. No signs or symptoms of distress noted.
== END 2019-06-21 16:15 | disposition home or self-care (01) | DRG 807 ==
LOC: LDRP 10:30
PROVIDERS: ADMIT Obstetrics & Gynecology; ATTEND Obstetrics & Gynecology
PROC: 10E0XZZ Delivery of Products of Conception, External Approach (ICD-10-PCS; principal; 2019-06-19)
PROC: 0KQM0ZZ Repair Perineum Muscle, Open Approach (ICD-10-PCS; 2019-06-19)
PROC: 10907ZC Drainage of Amniotic Fluid, Therapeutic from Products of Conception, Via Natural or Artificial Opening (ICD-10-PCS; 2019-06-19)
DX: O70.1 Second degree perineal laceration during delivery (principal); Z37.0 Single live birth; Z3A.39 39 weeks gestation of pregnancy
CPT/HCPCS: 36415; 85025; 86850; 86900; 86901